=== PATIENT | female | born 1990 | race American Indian/Alaskan Native ===

== ENCOUNTER 2021-09-05 17:57 | Emergency (ER) | payer OTHER ==
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
[2021-09-06] MEDS ORDERED: IBUPROFEN 600 MG TAB PO ONE (09:44)
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
[2021-09-06 11:07] VITALS: BP 128/80
== END 2021-09-06 11:07 | disposition home or self-care (01) ==
LOC: ED 17:57
DX: S80.02XA Contusion of left knee, initial encounter (principal); S80.01XA Contusion of right knee, initial encounter; Z79.899 Other long term (current) drug therapy; V89.2XXA Person injured in unspecified motor-vehicle accident, traffic, initial encounter; Y93.89 Activity, other specified; Y92.488 Other paved roadways as the place of occurrence of the external cause; Y99.8 Other external cause status
CPT/HCPCS: 99283